=== PATIENT | male | born 1995 | race Caucasian/White ===

== ENCOUNTER 2022-03-04 22:50 | Emergency (ER) | payer SELFPAY ==
[~2022-03-04] VITALS: Ht 167.6 cm; Wt 129.3 kg
[2022-03-04] MEDS ORDERED: ACETAMINOPHEN 325 MG TAB PO ONE (23:00)
[2022-03-04] MEDS ORDERED: FAMOTIDINE 20 MG/2 ML VIAL IV ONE (23:00)
[2022-03-04] MEDS ORDERED: CLONIDINE HCL 0.1 MG TAB PO ONE (23:00)
[2022-03-04] MEDS ORDERED: CLONIDINE HCL 0.1 MG TAB ONE (23:23)
[2022-03-05 00:13] VITALS: BP 169/95
== END 2022-03-05 00:10 | disposition home or self-care (01) ==
LOC: FSED 22:56
DX: R07.89 Other chest pain (principal); I16.0 Hypertensive urgency; E66.01 Morbid (severe) obesity due to excess calories; I10 Essential (primary) hypertension; J45.909 Unspecified asthma, uncomplicated
CPT/HCPCS: 71046; 93005; 99283